=== PATIENT | male | born 1965 | race Caucasian/White ===

== ENCOUNTER 2024-01-28 16:59 | Inpatient (IN) | payer SELFPAY ==
[2024-01-28] MEDS ORDERED: ASPIRIN 81 MG CHEWABLE TABLET ONE (17:19)
[2024-01-28] MEDS ORDERED: HEPARIN 5000 UNIT/ML 1 ML VIAL ONE ×2 (17:19→17:45)
[2024-01-28] MEDS ORDERED: HEPARIN/D5W 25,000 UNIT/500 ML BAG IV ONE (17:20)
[2024-01-28] MEDS ORDERED: MORPHINE 4 MG/ML SYR ONE (17:20)
[2024-01-28 17:26] LABS: Absolute Basophils 0.1 K/uL (0-0.5); Absolute Eosinophils 0.2 K/uL (0-0.5); Absolute Lymphocytes (CBC) 2.8 K/uL (0.7-4.9); Absolute Monocytes 0.7 K/uL (0.1-1.3); Absolute Neutrophil 6.2 K/uL (1.8-8.0); Basophils % 1.4 % (0-1.3); Eosinophils % 1.7 % (0-4.4); Hematocrit 51.6 % (39.6-49.0); Hemoglobin 17.7 g/dL (13.6-17.9); Lymphocytes % 27.7 % (15.3-44.8); MCH 33.3 pg (27.0-35.0); MCHC 34.2 g/dL (32.0-36.0); MCV 97.4 fL (80-100); MPV 7.8 fL (7.6-11.3); Monocytes % 6.7 % (3.3-12.3); Neutrophils % 62.5 % (41.7-73.7); Nucleated Red Blood Cells % 0.2 % (0-0); Platelets 295 thou/uL (152-406); Red Cell Distribution Width 13.3 % (12.1-15.2)
[2024-01-28 17:30] LABS: Protime INR 0.98
--- NOTE | 2024-01-28 17:37 | RAD REPORT ---
EXAM DESCRIPTION: RAD - Chest Single View - 01/28/2024 5:24 pm CLINICAL HISTORY: CHEST PAIN Chest pain. COMPARISON: No comparisons FINDINGS: Portable technique limits examination quality. The lungs are grossly clear. The heart is normal in size. No displaced fractures. IMPRESSION: No acute intrathoracic process suspected.
[2024-01-28] MEDS ORDERED: HEPA 1000U/500MLS 2,000 UNIT/1,000 ML BAG IV ONE (17:44)
[2024-01-28] MEDS ORDERED: LIDOCAINE 1% 20 ML MDV ONE (17:44)
[2024-01-28] MEDS ORDERED: HEPARIN 10,000 UNIT/10 ML VIAL IV ONE (17:44)
[2024-01-28] MEDS ORDERED: MIDAZOLAM HCL 2 MG/2 ML INJ ONE (17:44)
[2024-01-28] MEDS ORDERED: ATROPINE SULF 1 MG/10 ML SYR IV ONE (17:44)
[2024-01-28 17:45] LABS: Anion Gap 10.6 mEq/L (5.0-15.0); Potassium 4.6 mEq/L (3.5-5.1)
[2024-01-28] MEDS ORDERED: NA CHLORIDE 0.9% 500 ML ONE (17:45)
[2024-01-28] MEDS ORDERED: ASPIRIN 325 MG TAB ONE (17:45)
[2024-01-28] MEDS ORDERED: CLOPIDOGREL 75 MG TABLET ONE (17:45)
[2024-01-28] MEDS ORDERED: FENTANYL CITR 100 MCG/2 ML ONE (17:45)
[2024-01-28] MEDS ORDERED: TICAGRELOR 90 MG TABLET PO ONE ×2 (17:45→17:48)
[2024-01-28 17:48] LABS: Troponin High Sensitivity 96.1 pg/mL (<58.9)
--- NOTE | 2024-01-28 17:58 | RAD REPORT ---
EXAM DESCRIPTION: CT - Angio Aorta For Dissection - 01/28/2024 5:40 pm CLINICAL HISTORY: Chest pain radiating to the back. chest pain COMPARISON: No comparisons TECHNIQUE: CT angiography of the aorta was performed with MIPs. All CT scans are performed using dose optimization technique as appropriate and may include automated exposure control or mA/KV adjustment according to patient size. FINDINGS: A left aortic arch is present with normal branching pattern of the great vessels.No acute aortic finding is seen such as aneurysm, penetrating ulcer or dissection. The celiac axis, SMA, PEÑA and renal arteries are patent. No evidence of pulmonary embolism. The lungs are clear. The liver demonstrates fatty liver.The spleen, pancreas, adrenal glands and kidneys are within normal limits for arterial phase imaging. Moderate abdominal aortic atherosclerosis with both iliac vessels also moderately atherosclerotic. Th ere is a short segment non flow limiting dissection present left common iliac artery. No bowel obstruction, free fluid or abscess.No pathologic enlarged lymphadenopathy identified. No fracture or worrisome bone lesion seen. 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 Fatty liver.
--- NOTE | 2024-01-28 18:15 | ER ---
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 + sweating. 17:13 Coronavirus screen: Client denies travel out of the [place] in the last 14 days. At this ll1 time, the client does not indicate any symptoms associated with coronavirus-19. Ebola Screen: Patient denies travel to an Ebola-affected area in the 21 days before illness onset. Initial Sepsis Screen: Does the patient meet any 2 criteria? No. Patient's initial sepsis screen is negative. Does the patient have a suspected source of infection? No. Patient's initial sepsis screen is negative. Risk Assessment: Do you want to hurt yourself or someone else? Patient reports no desire to harm self or others. Onset of symptoms was January 28, 2024. 17:13 Method Of Arrival: Ambulatory ll1 17:13 Acuity: LANI 1 ll1 Triage Assessment: 17:14 General: Appears distressed, uncomfortable, ill, Behavior is calm, cooperative, ll1 appropriate for age. Pain: Complains of pain in chest Pain radiates to right arm and left arm. Cardiovascular: Reports chest pain, diaphoresis, fatigue, shortness of breath. Historical: - Allergies: 17:03 No Known Allergies; ll1 - PMHx: 17:03 None; ll1 - PSHx: 17:03 None; ll1 - Immunization history:: Adult Immunizations. - Infectious Disease History:: Denies. - Social history:: Smoking status: Patient reports the use of cigarette tobacco products, smokes two packs cigarettes per day. - Family history:: not pertinent. - Hospitalizations: : No recent hospitalization is reported. Screenin:33 [facility] ED Fall Risk Assessment (Adult) History of falling in the last 3 months, ph including since admission No falls in past 3 months (0 pts) Confusion or Disorientation Intoxicated or Sedated No (0 pts) Impaired Gait No (0 pts) Mobility Assist Device Used No (0 pt) Altered Elimination No (0 pt) Score/Fall Risk Level 0 - 2 = Low Risk Oriented to surroundings, Maintained a safe environment, Hourly rounding (assess needs \T\ fall precautionary measures) done. Abuse screen: Denies threats or abuse. Denies injuries from another. Nutritional screening: No deficits noted. Tuberculosis screening: No symptoms or risk factors identified. Assessment: 17:15 General: Appears distressed, uncomfortable, Behavior is cooperative. Pain: Complains of ph pain in chest Pain radiates to left arm and right arm Pain began suddenly. Neuro: Level of Consciousness is awake, alert, obeys commands, Oriented to person, place, time, situation. Cardiovascular: Reports chest pain, lightheadedness, shortness of breath. Respiratory: Airway is patent Respiratory effort is even, unlabored, Respiratory pattern is regular, symmetrical. Derm: Skin is clammy, diaphoretic, Skin is normal. Musculoskeletal: Circulation, motion, and sensation intact. Range of motion: intact in all extremities. 17:32 Reassessment: Pt taken to CT via stretcher, accompanied by ESTIVEN Dao. ph 17:51 Reassessment: laborer cook house team at bedside. ph 17:59 Reassessment: Pt taken to lab director. ph Vital Signs: 17:13 BP 133 / 85; Pulse 71; Resp 18; Temp 98; Pulse Ox 100% on R/A; Weight 113.4 kg; Pain ll1 5/10; 17:22 BP 172 / 94 RA; Pulse 58; ph 17:22 BP 115 / 95 LA; Pulse 69; ph 17:13 Pain Scale: Adult ll1 ED Course: 17:01 Patient arrived in ED. ra3 17:06 Gilbert Miramontes MD is Attending Physician. rn 17:07 EKG completed in triage. Results shown to MD. ll1 17:14 Triage completed. ll1 17:14 Arm band placed on. ll1 17:21 Oly Henriquez, ESTIVEN is Primary Nurse. ph 17:21 Initial lab(s) drawn, by ED staff, sent to lab. Inserted saline lock: 18 gauge in left ph antecubital area, using aseptic technique. Blood collected. Flushed with 10 mL NS. Inserted saline lock: 18 gauge in right hand, using aseptic technique. Flushed with 10 mL NS. 17:26 XRAY Chest (1 view) In Process Unspecified. EDMS 17:34 Patient has correct armband on for positive identification. Bed in low position. Call ph light in reach. Side rails up X 1. Client placed on continuous cardiac and pulse oximetry monitoring. NIBP monitoring applied. threat monitoring analyst on. Door closed. Noise minimized. Warm blanket given. 17:40 No provider procedures requiring assistance completed. Patient admitted, IV remains in ph place. Patient maintains SpO2 saturation greater than 95% on room air. 17:42 CT Aorta for Dissection In Process Unspecified. EDMS 18:14 Jossy Evans MD is Hospitalizing Provider. rn Administered Medications: 17:18 Drug: Aspirin PO Chewable Tablet 324 mg PO once; 81 mg tablets x 4 Route: PO; ph 17:30 Follow up: Response: No adverse reaction ph 17:21 Drug: Heparin (MD-Bolus No thrombolytic) - HEParin IVP 60 units/kg IVP once; Max 5000 ph units {Co-Signature: cm10 (Lucy Suarez RN).} Route: IVP; Site: right hand; 17:30 Follow up: Response: No adverse reaction ph 17:24 CANCELLED (Duplicate Order): Heparin (MD Drip) - ([id number] units, l4u553 ml) 12 rn units/kg/hr IV at calculated rate Per protocol; Max initial rate 1000 units/hr 17:24 CANCELLED (Duplicate Order): Heparin (MD-Bolus No thrombolytic) - txyuygx97 units/kg rn IVP once; Max 5000 units 17:27 Drug: morphine IVP or IV 4 mg IVP once over 4 mins Route: IVP; Infused Over: 4 mins; iw Site: right hand; 17:30 Follow up: Response: No adverse reaction ph 17:46 CANCELLED (Duplicate Order): Brilinta - [id number] mg PO once; loading dose rn 17:49 Not Given (Other Intervention Used): Brilinta - zhzhphxnfi14 mg PO once; maintenance ph dose 17:49 Drug: Brilinta - Ticagrelor PO 180 mg PO once; loading dose Route: PO; ph 17:50 Follow up: Response: No adverse reaction ph Medication: 17:33 VIS not applicable for this client. ph Outcome: 17:59 Admitted to Powerhouse Operator accompanied by nurse, accompanied by tech, family with patient, ph via stretcher, with oxygen, on monitor, with chart, 17:59 Condition: stable 17:59 Instructed on the need for admit, 18:15 Decision to Hospitalize by Provider. rn 18:15 Patient left the ED. iw Signatures: Dispatcher [employer] Aliza Faustin RN RN iw Gilbert Miramontes MD MD rn Hall, Patricia, RN RN ph Lewis, Lynsay, RN RN ll1 Amy Sepulveda 3 Lucy Suarez RN cm10 Corrections: (The following items were deleted from the chart) 17:14 17:03 Chief complaint: Patient states: CP and arms ll1 ll1 17:15 17:13 BP 133 / 85; Pulse 71bpm; Resp 18bpm; Pulse Ox 100% RA; Pain 5/10, Adult; ll1 ll1 17:49 17:48 Brilinta - Ticagrelor PO 90 mg PO ph ph
--- NOTE | 2024-01-28 18:15 | EDPHYS ---
Physician Documentation [facility] Name: Scooby Ruiz Age: 58 yrs Sex: Male : 1965 Arrival Date: 01/28/2024 Time: 16:59 Bed IW10 Private MD: ED Physician Gilbert Miramontes HPI: 01/27 17:18 This 58 yrs old Male presents to ER via Ambulatory with complaints of Chest Pain. rn 17:18 The patient or guardian reports chest pain that is located primarily in the substernal rn area. Onset: 90 minute(s) ago. The pain radiates to the left arm. Associated signs and symptoms: Pertinent positives: nausea, shortness of breath. The chest pain is described as a heaviness, squeezing. Duration: The patient or guardian reports a single episode, that is still ongoing. Modifying factors: The symptoms are alleviated by nothing. the symptoms are aggravated by nothing. Severity of pain: in the emergency department the pain is unchanged. The patient has not experienced similar symptoms in the past. Patient reports working outside, began to feel chest pressure, heaviness, radiates to the left shoulder. Associated with nausea and sweating. No tearing chest pain and no radiation to the back. Patient reports pain never got better, not getting worse either. No recent illness. No known cardiac problem.. Historical: - Allergies: 17:03 No Known Allergies; ll1 - PMHx: 17:03 None; ll1 - PSHx: 17:03 None; ll1 - Immunization history:: Adult Immunizations. - Infectious Disease History:: Denies. - Social history:: Smoking status: Patient reports the use of cigarette tobacco products, smokes two packs cigarettes per day. - Family history:: not pertinent. - Hospitalizations: : No recent hospitalization is reported. ROS: 17:18 Constitutional: Negative for fever, chills, and weight loss, Cardiovascular: Positive rn for chest pain Respiratory: Negative for shortness of breath, cough, wheezing, and pleuritic chest pain, Abdomen/GI: Negative for abdominal pain, nausea, vomiting, diarrhea, and constipation, MS/Extremity: Negative for injury and deformity, Skin: Negative for injury, rash, and discoloration, Neuro: Positive for diaphoresis Exam: 17:18 Constitutional: This is a well developed, well nourished patient who is awake, alert, rn appears uncomfortable, mottled Head/Face: Normocephalic, atraumatic. Cardiovascular: Regular rate and rhythm. No pulse deficits. Respiratory: No increased work of breathing, no retractions or nasal flaring. Abdomen/GI: Soft, nontender, no masses MS/ Extremity: Pulses equal, no cyanosis. Neurovascular intact. Full, normal range of motion. Equal circumference. Neuro: Awake and alert, GCS 15 17:22 ECG was reviewed by the Attending Physician. rn Vital Signs: 17:13 BP 133 / 85; Pulse 71; Resp 18; Temp 98; Pulse Ox 100% on R/A; Weight 113.4 kg; Pain ll1 5/10; 17:22 BP 172 / 94 RA; Pulse 58; ph 17:22 BP 115 / 95 LA; Pulse 69; ph 17:13 Pain Scale: Adult ll1 MDM: 17:06 Patient medically screened. rn 17:17 ED course: Consulted with Dr. Carvajal, he is going to see if [facility] available at this rn time.. 17:18 ED course: Dr. Carvajal called back, unable to activate cath here, recommends transfer.. rn 17:26 ED course: Upon reevaluation skin became more mottled, repeat radial pulse diminished rn compared to right, bilateral blood pressures obtained by nurse and have a 60 point difference. Heparin infusion not given due to this new finding, patient will be rushed to CT to rule out dissection prior to cath.. 17:46 ED course: No evidence of gross dissection on CT aorta per my interpretation. rn 17:46 ED course: [facility] staff here, will be able to cath here after all.. rn 17:55 Differential diagnosis: acute myocardial infarction, acute pericarditis, rn costochondritis, gastroesophageal reflux disease (GERD). 17:57 ED course: Dr. Reddy reports verbally no aortic dissection or aneurysm. No flow problem rn at this time. Does report left iliac or femoral short segment dissection but does not alter flow and appears chronic. Patient is cleared to go to [facility] at this time.. 18:13 HEART Score: History: Highly Suspicious (2), ECG: Significant ST-deviation (2), Age: > rn 45 and < 65 years (1), Risk Factors: No Risk Factors Known (0), Troponin: > 1 and < 3 x normal limit (1), Total Score = 6. The patient was given aspirin in the Emergency Department. Data reviewed: vital signs, nurses notes, lab test result(s), EKG, radiologic studies, CT scan, and as a result, I will admit patient. Consideration of Admission/Observation Patient was admitted/placed on observation. Escalation of care including admission/observation considered. Counseling: I had a detailed discussion with the patient and/or guardian regarding the historical points, exam findings, and any diagnostic results supporting the discharge/admit diagnosis, lab results, radiology results, the need for further work-up and treatment in the hospital. Response to treatment: the patient's symptoms have mildly improved after treatment, and as a result, I will admit patient. ED course: I personally spent 35 minutes engaged in work directly related to the individual patient's care. This does not include any time spent performing procedures. The patient has been deemed critically ill because of acute STEMI, presenting with signs that required emergent rule out of aortic dissection prior to cath, organization of cath and admission to the hospital.. 01/27 17:10 Order name: Basic Metabolic Panel 01/27 17:10 Order name: CBC with Diff; Complete Time: : 01/27 17:10 Order name: NT PRO-BNP 01/27 17:10 Order name: PT-INR; Complete Time: :01/27 17:10 Order name: Troponin HS 01/27 17:10 Order name: XRAY Chest (1 view) 01/27 17:24 Order name: CT Aorta for Dissection 01/27 17:10 Order name: Cardiac monitoring; Complete Time: :01/27 17:10 Order name: EKG - Nurse/Tech; Complete Time: :01/27 17:10 Order name: IV Saline Lock; Complete Time: 17:01/27 17:10 Order name: Labs collected and sent; Complete Time: :01/27 17:10 Order name: O2 Per Protocol; Complete Time: :01/27 17:10 Order name: O2 Sat Monitoring; Complete Time: 17:40 rn EC: Rate is 68 beats/min. Rhythm is regular. QRS Gentry is Normal. MT interval is normal. QRS rn interval is normal. QT interval is normal. No Q waves. T waves are Normal. ST Segment is elevated in leads II, III, aVF. ST Segment is depressed in lead aVL. Clinical impression: STEMI. Interpreted by me. Reviewed by me. Administered Medications: 17:18 Drug: Aspirin PO Chewable Tablet 324 mg PO once; 81 mg tablets x 4 Route: PO; ph 17:30 Follow up: Response: No adverse reaction ph 17:21 Drug: Heparin (FL-Bolus No thrombolytic) - HEParin IVP 60 units/kg IVP once; Max 5000 ph units {Co-Signature: cm10 (Lucy Suarez RN).} Route: IVP; Site: right hand; 17:30 Follow up: Response: No adverse reaction ph 17:24 CANCELLED (Duplicate Order): Heparin (FL Drip) - ([id number] units, f4b082 ml) 12 rn units/kg/hr IV at calculated rate Per protocol; Max initial rate 1000 units/hr 17:24 CANCELLED (Duplicate Order): Heparin (FL-Bolus No thrombolytic) - units/kg rn IVP once; Max 5000 units 17:27 Drug: morphine IVP or IV 4 mg IVP once over 4 mins Route: IVP; Infused Over: 4 mins; iw Site: right hand; 17:30 Follow up: Response: No adverse reaction ph 17:46 CANCELLED (Duplicate Order): Brilinta - [id number] mg PO once; loading dose rn 17:49 Not Given (Other Intervention Used): Brilinta - oxksxenbie58 mg PO once; maintenance ph dose 17:49 Drug: Brilinta - Ticagrelor PO 180 mg PO once; loading dose Route: PO; ph 17:50 Follow up: Response: No adverse reaction ph Disposition: 18:13 Critical Care:. 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 Total time: 35 rn minutes Signatures: Dispatcher [employer] EDAliza Hodge, RN Gilbert Whitehead MD MD rn Hall, Patricia, RN RN ph Lewis, Lynsay, RN RN ll1 Erick, Lucy JEAN-BAPTISTE cm10 Corrections: (The following items were deleted from the chart) 17:11 17:11 Chest Single View+RAD.RAD.BRZ ordered. EDWV EDMS 17:24 17:16 Heparin (FL Drip) 12 units/kg/hr - ([place] [address] units, D5W IV 500 ml) IV at rn calculated rate Per protocol; Max initial rate 1000 units/hr ordered. rn 17:24 17:16 Heparin (FL-Bolus No thrombolytic) - HEParin IVP 60 units/kg IVP once; Max 5000 rn units ordered. rn 17:46 17:46 Brilinta - Ticagrelor PO 180 mg PO once; loading dose ordered. rn rn
[2024-01-28] MEDS ORDERED: EPTIFIBATIDE 75 MG/100 ML VIAL IV ONE ×2 (18:25→20:08)
[2024-01-28] MEDS ORDERED: EPTIFIBATIDE 20 MG/10 ML VIAL IV ONE (18:25)
[2024-01-28] MEDS: EPTIFIBATIDE 75 MG/100 ML VIAL IV SCH (18:39)
[2024-01-28] MEDS ORDERED: ONDANSETRON 4 MG/2 ML VIAL IV PRN (19:43)
[2024-01-28] MEDS ORDERED: MORPHINE 2 MG/ML SYR IV PRN (19:43)
--- NOTE | 2024-01-28 19:43 | P.HP ---
Certification for Inpatient With expected LOS: >2 Midnights Patient will require the following post-hospital care: None Practitioner: I am a practitioner with admitting privileges, knowledge of patient current condition, hospital course, and medical plan of care. Services: Services provided to patient in accordance with Admission requirements found in Title 42 Section 412.3 of the Code of Federal Regulations Patient History Date of Service: 01/28/24 Reason for admission: Chest pain History of Present Illness: 58-year-old male with a past medical history of only chronic tobacco use, presenting with sudden onset chest pain about 3 hours prior to presentation anterior chest described as heaviness, nonradiating acid with mild shortness of breath. Patient denies any palpitation. No dizziness or syncope. On arrival in the ED EKG shows ST segment elevation in 2 3 and aVF, troponin mildly elevated at 96. Rest of laboratory workup unremarkable except for creatinine of 1.44, no previous to compare. Cardiology consulted and Hi Teacher activated. Patient received aspirin Brilinta as well as heparin drip. He has been taken to cardiac engineering laboratory technician now for urgent STEMI. Of note the patient was also noted to have differential blood pressure in bilateral lower extremities. CTA of the abdomen done shows no evidence of dissection but short segment dissection of the left common femoral artery.This does not appear to cause flow restriction. Allergies No Known Allergies Allergy (Unverified 01/28/24 19:11) - Past Medical/Surgical History Has patient received pneumonia vaccine in the past: No Diabetic: No Past Medical History: Reviewed- Non-Contributory Past Surgical History: Reviewed- Non-Contributory - Social History Smoking Status: Heavy Tobacco smoker (>10 cigarettes/day) Smoking therapy provided: Yes Patient receptive to therapy: No Alcohol use: No CD- Drugs: No Caffeine use: No Place of Residence: Home Review of Systems Cardiovascular: Chest Pain, Orthopnea Physical Examination - Vital Signs Temperature: 98 F Blood Pressure: 115/95 Pulse: 69 Respirations: 18 - Physical Exam General: Alert, In no apparent distress, Oriented x3, Mild distress, Other (Pale and acutely ill looking) HEENT: Atraumatic, Normocephalic, PERRLA Neck: Supple, 2+ carotid pulse no bruit, JVD not distended Respiratory: Clear to auscultation bilaterally, Normal air movement Cardiovascular: Normal pulses, Regular rate/rhythm, Normal S1 S2 Capillary refill: Other (Delayed with reduced position on the right compared to left) Gastrointestinal: Normal bowel sounds, Soft and benign, Non-distended, No ascites Musculoskeletal: No clubbing, No swelling Integumentary: No breakdown, No tenderness/swelling Neurological: Normal speech, Normal strength at 5/5 x4 extr, Cranial nerves 3-12 intact - Studies Laboratory Data (last 24 hrs) 01/28/24 01/28/24 01/28/24 17:15 17:15 17:15 WBC 10.00 Hgb 17.7 Hct 51.6 H Plt Count 295 PT 11.0 INR 0.98 Sodium 134 L Potassium 4.6 BUN 7 Creatinine 1.44 H Glucose 206 H Assessment and Plan - Problems (Diagnosis) (1) Acute HI, anterior wall Current Visit: Yes Status: Acute - Plan Impression Acute STEMI Chronic tobacco use Femoral artery dissection Acute kidney injurylikely due to prerenal/cardiorenal Plan Status post cardiac cath Follow cardiology recommendation Heparin Plavix and aspirin Obtain lipid panel in a.m. Will initiate statin Tobacco cessation advised Add nicotine patch Pain control Gentle IV fluid with acetylcysteine since DESIREE to minimize superimposed contrast nephropathy Heparin for DVT prophylaxis Full code - Advance Directives Does patient have a Living Will: No Does patient have a Durable POA for Healthcare: No
[2024-01-28] MEDS ORDERED: LORAZEPAM 0.5 MG TABLET PO PRN (19:45)
[2024-01-28] MEDS ORDERED: HYDRALAZINE HCL 20 MG/ML VIAL IV PRN (19:45)
[2024-01-28] MEDS ORDERED: TICAGRELOR 90 MG TABLET PO SCH (21:00)
[2024-01-28] MEDS: ACETYLCYST 20% 800 MG/4 ML VIAL PO SCH (21:16)
[2024-01-28] MEDS: ATORVASTATIN 80 MG TAB PO SCH (21:16)
[2024-01-28] MEDS: NA CHLORIDE 0.9% 1,000 ML IV SCH (21:16)
[2024-01-28] MEDS: FAMOTIDINE 20 MG TAB PO SCH (21:18)
[2024-01-28 23:25] LABS: Thyroid Stimulating Hormone 3.99 uIU/mL (0.358-3.740)
[2024-01-29 05:10] VITALS: BMI 34.8
[2024-01-29 05:25] LABS: Absolute Basophils 0.1 K/uL (0-0.5); Absolute Eosinophils 0.1 K/uL (0-0.5); Absolute Lymphocytes (CBC) 2.3 K/uL (0.7-4.9); Absolute Monocytes 1.2 K/uL (0.1-1.3); Absolute Neutrophil 8.5 K/uL (1.8-8.0); Basophils % 0.4 % (0-1.3); Eosinophils % 0.9 % (0-4.4); Hematocrit 45.4 % (39.6-49.0); Hemoglobin 15.8 g/dL (13.6-17.9); Lymphocytes % 19.1 % (15.3-44.8); MCH 33.5 pg (27.0-35.0); MCHC 34.8 g/dL (32.0-36.0); MCV 96.3 fL (80-100); MPV 7.9 fL (7.6-11.3); Monocytes % 9.5 % (3.3-12.3); Neutrophils % 70.1 % (41.7-73.7); Nucleated Red Blood Cells % 0.1 % (0-0); Platelets 273 thou/uL (152-406); RBC Red Blood Cell Count 4.72 M/uL (4.33-5.43); Red Cell Distribution Width 13.3 % (12.1-15.2)
[2024-01-29 05:45] LABS: PT Prothrombin Time 11.8 SECONDS (9.4-12.5); Protime INR 1.06
[2024-01-29 06:31] LABS: Albumin 3.5 g/dL (3.4-5.0); Albumin/Globulin Ratio 0.9 (1.1-1.8); Anion Gap 9.2 mEq/L (5.0-15.0); Bilirubin Total 0.5 mg/dL (0.2-1.0); Globulin 3.7 g/dL (2.3-3.5); Potassium 4.2 mEq/L (3.5-5.1); Protein, Total 7.2 g/dL (6.4-8.2)
--- NOTE | 2024-01-29 08:49 | P.CNS ---
Date of Consult: 01/29/24 Chief Complaint: Chest pain History of Present Illness: Patient presented yesterday with chest pain for 2 hours prior to arrival, pressure sensation, radiated to his arm and back, sweating, diapharesis, was found to have ST elevation inferior leads, was taken emergently to test lab technician a fter CT was done to rule out dissection. Allergies No Known Allergies Allergy (Unverified 01/28/24 19:11) Home medications list reviewed: Yes Home Medications: NK [No Home Meds] 01/29/24 - Past Medical/Surgical History Diabetic: No - Family History Mother Medical History: Lung disease - Social History Smoking Status: Current every day smoker Alcohol use: No CD- Drugs: No Caffeine use: Yes Place of Residence: Home Review of Systems 10-point ROS is otherwise unremarkable Physical Examination Temp Pulse Resp BP Pulse Ox 97.2 F 62 15 121/83 96 01/29/24 08:00 01/29/24 08:00 01/29/24 08:00 01/29/24 08:00 01/29/24 08:00 General: Alert, In no apparent distress HEENT: Atraumatic, PERRLA, Mucous membr. moist/pink, EOMI, Sclerae nonicteric Neck: Supple, 2+ carotid pulse no bruit, No LAD, Without JVD or thyroid abnormality Respiratory: Clear to auscultation bilaterally, Normal air movement Cardiovascular: Regular rate/rhythm, Normal S1 S2 Gastrointestinal: Normal bowel sounds, No tenderness Musculoskeletal: No tenderness Integumentary: No rashes Neurological: Normal gait, Normal speech, Normal tone, Normal affect Lymphatics: No axilla or inguinal lymphadenopathy Laboratory Data (last 24 hrs) 01/28/24 01/28/24 01/28/24 17:15 17:15 17:15 WBC 10.00 Hgb 17.7 Hct 51.6 H Plt Count 295 PT 11.0 INR 0.98 Sodium 134 L Potassium 4.6 BUN 7 Creatinine 1.44 H Glucose 206 H - Problems (1) STEMI (ST elevation myocardial infarction) Current Visit: Yes Status: Acute Plan: Patient was taken emergently to test lab technician and PCI of 99% thrombotic occluded RCA was done with Synergy 4.0x38 and 4.0x24 mm MIRANDA ASA 81 mg daily for life. Brilinta 90 mg po BID for 12 months Get echo (2) HLD (hyperlipidemia) Current Visit: Yes Status: Acute Plan: continue Lipitor 80 mg daily (3) HTN (hypertension) Current Visit: Yes Status: Acute Plan: Patient BP is soft, not on medications for now, continue to monitor.
[2024-01-29] MEDS: NICOTINE 21 MG/PAT TD SCH (09:08)
[2024-01-29] MEDS: TICAGRELOR 90 MG TABLET PO SCH (09:08)
[2024-01-29] MEDS: ASPIRIN 81 MG CHEWABLE TABLET PO SCH (09:08)
[2024-01-29] MEDS: ENOXAPARIN 40 MG/0.4 ML SQ SCH (09:08)
[2024-01-29 12:53] VITALS: TEMP 98
--- NOTE | 2024-01-29 13:06 | OP ---
Date of Procedure: 01/29/2024 Surgeon: Tom Carvajal Procedures Performed: 1.Selective coronary angiogram. 2.PCI of the RCA with Synergy 4.0 x 38 overlapped with Synergy 4.0 x 24 mm drug-eluting stents. Indication For Procedure: ST-elevation MD. Complications: None. Estimated Blood Loss: Less than 50 cc. Access: Right radial, closed by TR band. Sedation Time: 40 minutes with 1 of Versed and 25 of fentanyl. Description Of Procedure: After risks, benefits, and alternatives were explained to the patient, the patient agreed to proceed with the procedure and signed informed consent. The patient was brought [facility] to the incinerator plant laborer, prepped and draped in a sterile fashion. Time-out was performed. Sedation was administered. Next, the right radial access was obtained. A JR4 guide was advanced over J-wire to t he aortic root. Selective angiogram was done with a JR4 guide. Next, heparin was administered. ACT was therapeutic. A run-through wire was passed across the lesion, pre-dilated the lesions with 3.0 NC balloon. Next, Synergy 4.0 x 38 mm drug-eluting stent was placed to close mid to distal RCA that was overlapped with another Synergy 4.0 x 28 mm drug-eluting stent to the proximal to mid RCA. The s tents were postdilated with an NC 4.5 mm balloon. Final angiogram shows DIOGO-3 flow. Next, JR4 guid e was exchanged for a [place] 4 catheter for the left coronary system selective coronary angiogram. At the end of the procedure, catheter was removed over a J-wire. Sheath was removed. TR band was appl ied. Hemostasis was achieved. The patient was moved back to recovery in stable condition. Findings: 1.Left main, normal. 2.LAD, mild luminal irregularities. 3.Left circ, mild luminal irregularities. 4.RCA, large, dominant, proximal to mid 90% to 99% thrombotic disease, status post PCI with Synergy 4.0 x 38 and 4.0 x 24 mm drug-eluting stents. 5.RPDA/RPLV, mild luminal irregularities. Assessment And Plan: 1.STEMI with 99% thrombotic occlusion of the RCA, most likely status post PCI with Synergy 4.0 x 38 overlapped with 4.0 x 24 mm drug-eluting stents. 2.Continue aspirin 81 mg daily for life. 3.Brilinta 180 x1 was given in the ER, continue Brilinta 90 mg p.o. b.i.d. for 12 months. 4.Integrilin bolus was given in the incinerator plant laborer, continue drip for 6 hours. 5.Continue aggressive medical treatment for CAD. SOARES/MODL Voice ID: [id number] Report ID: [id number]
--- NOTE | 2024-01-29 13:38 | ECHO ---
HEIGHT: 5 ft 11 in WEIGHT: 250 lb 0 oz DATE OF STUDY: 01/29/[address]: Tom Carvajal MD 2-DIMENSIONAL: YES M.MODE: YES DOPPLER: YES COLOR FLOW: YES TDS: NO PORTABLE: YES DEFINITY: NO BUBBLE STUDY: NO DIAGNOSIS: STATUS POST HEART CATH WITH STENT X2 TO RCA CARDIAC HISTORY: CATHERIZATION:YES SURGERY: NO PROSTHETIC VALVE: NO PACEMAKER: NO MEASUREMENTS (cm) DIASTOLIC (NORMALS) SYSTOLIC (NORMALS) IVSd 0.9 (0.6-1.2) LA Diam 3.5 (1.9-4.0) LVEF 67% LVIDd 5.2 (3.5-5.7) LVIDs 3.3 (2.0-3.5) %FS 38% LVPWd 1.2 (0.6-1.2) Ao Diam 2.7 (2.0-3.7) 2 DIMENSIONAL ASSESSMENT: RIGHT ATRIUM: NORMAL LEFT ATRIUM: NORMAL RIGHT VENTRICLE: NORMAL LEFT VENTRICLE: NORMAL TRICUSPID VALVE: NORMAL MITRAL VALVE: NORMAL PULMONIC VALVE: NORMAL AORTIC VALVE: NORMAL PERICARDIAL EFFUSION: NONE AORTIC ROOT: NORMAL LEFT VENTRICULAR WALL MOTION: NORMAL DOPPLER/COLOR FLOW: NORMAL COMMENTS: 1. NORMAL LEFT VENTRICULAR SYSTOLIC FUNCTION. NORMAL LEFT VENTRICULAR EJECTION FRACTION 60-65%. NORMAL WALL MOTION. 2. NORMAL DIASTOLIC FUNCTION. TECHNOLOGIST: BILLIE HANSON
[2024-01-29] MEDS: SOD CHLORIDE 0.65% NASAL SPRAY NAS SCH (14:43)
--- NOTE | 2024-01-29 15:36 | P.DS ---
Admission Date: 01/28/24 Discharge Date: 01/29/24 Disposition: ROUTINE DISCHARGE Discharge Condition: GOOD Reason for Admission: Chest pain Brief History of Present Illness: 58-year-old male with a past medical history of only chronic tobacco use, presenting with sudden onset chest pain about 3 hours prior to presentation anterior chest described as heaviness, nonradiating acid with mild shortness of breath. Patient denies any palpitation. No dizziness or syncope. On arrival in the ED EKG shows ST segment elevation in 2 3 and aVF, troponin mildly elevated at 96. Rest of laboratory workup unremarkable except for creatinine of 1.44, no previous to compare. Cardiology consulted and Outboard Motor Tester activated. Patient received aspirin Brilinta as well as heparin drip. He has been taken to cardiac fish farm laborer now for urgent STEMI. Of note the patient was also noted to have differential blood pressure in bilateral lower extremities. CTA of the abdomen done shows no evidence of dissection but short segment dissection of the left common femoral artery.This does not appear to cause flow restriction. Hospital Course: Pt is a 58yo male with past medical history chronic tobacco use who presented with chest pain. On admission, EKG showed ST elevated in leads 2 3 and aVF. Lab studies showed elevated troponin at 96 and creatinine of 1.44. we consulted Cardiology for evaluation. cardiology did cardiac cath and placed a stent to the RCA. Pt was advised to continue aspirin and brilinta for at least 1 years. We also advised her to continue atorvastatin and quit smoking. Echo showed EF 60 - 65% with normal diastolic function. Pt was in NAD prior to discharge. Vital Signs/Physical Exam: Temp Pulse Resp BP Pulse Ox 98.0 F 69 16 123/82 95 01/29/24 12:00 01/29/24 14:00 01/29/24 14:00 01/29/24 14:00 01/29/24 14:00 Laboratory Data at Discharge: WBC 12.10 thou/uL (4.3-10.9) H 01/29/24 04:32 Hgb 15.8 g/dL (13.6-17.9) D 01/29/24 04:32 Hct 45.4 % (39.6-49.0) 01/29/24 04:32 Plt Count 273 thou/uL (152-406) 01/29/24 04:32 PT 11.8 SECONDS (9.4-12.5) 01/29/24 04:32 INR 1.06 01/29/24 04:32 Sodium 136 mEq/L (136-145) 01/29/24 04:32 Potassium 4.2 mEq/L (3.5-5.1) 01/29/24 04:32 BUN 6 mg/dL (7-18) L 01/29/24 04:32 Creatinine 1.05 mg/dL (0.70-1.30) 01/29/24 04:32 Glucose 105 mg/dL (74-106) 01/29/24 04:32 Total Bilirubin 0.5 mg/dL (0.2-1.0) 01/29/24 04:32 AST 67 U/L (15-37) H 01/29/24 04:32 ALT 47 U/L (16-61) 01/29/24 04:32 Alkaline Phosphatase 59 U/L (45-117) 01/29/24 04:32 Triglycerides 319 mg/dL (<150) H 01/29/24 04:32 Cholesterol 187 mg/dL (<200) 01/29/24 04:32 HDL Cholesterol 28 mg/dL (40-60) L 01/29/24 04:32 Cholesterol/HDL Ratio 6.68 01/29/24 04:32 Home Medications: Aspirin Chewable [Aspirin Chewable*] 81 mg PO DAILY 90 Days #90 tab.chew 01/29/24 Atorvastatin Calcium [Lipitor] 40 mg PO BEDTIME 90 Days #90 tab 01/29/24 Nicotine [Nicotine Patch] 1 each TD DAILY 42 Days #42 patch 01/29/24 Ticagrelor [Brilinta] 90 mg PO BID 90 Days #180 tab 01/29/24 New Medications: Aspirin Chewable [Aspirin Chewable*] 81 mg PO DAILY 90 Days #90 tab.chew Ticagrelor [Brilinta] 90 mg PO BID 90 Days #180 tab Atorvastatin Calcium [Lipitor] 40 mg PO BEDTIME 90 Days #90 tab Nicotine [Nicotine Patch] 1 each TD DAILY 42 Days #42 patch Physician Discharge Instructions: Continue ad nida activity as tolerated. Take brilinta and aspirin for at least 1 year. Continue atorvastatin and other home meds. Follow up with PCP and Cardiology within 1 - 2 weeks. Diet: AHA Activity: Ad nida Followup: NONE,NONE [Primary Care Provider] -
[2024-01-29 17:05] VITALS: O2SAT 95
[2024-01-29 17:06] VITALS: BP 131/84
--- NOTE | 2024-01-30 14:44 | EKG ---
Test Date: 2024-01-28 Test Time: 17:06:58 Staff Pharmacist [facility]: [facility] MEASUREMENT RESULTS: Intervals: Rate: 68 NE: 172 QRSD: 84 QT: 394 QTc: 418 [place]: P: 63 NE: 172 QRS: 67 T: 98 INTERPRETIVE STATEMENTS: Normal sinus rhythm ST elevation, consider inferior injury or acute infarct ACUTE MS / STEMI Consider right ventricular involvement in acute inferior infarct Abnormal ECG No previous ECG available for comparison Electronically Signed On 01-30-24 14:40:50 CDT by Tom Carvajal
--- NOTE | 2024-01-30 14:44 | EKG ---
Test Date: 2024-01-28 Test Time: 17:07:37 Erp Specialist: [facility] MEASUREMENT RESULTS: Intervals: Rate: 65 [place]: 172 QRSD: 84 QT: 388 QTc: 403 [place]: P: 60 CA: 172 QRS: 67 T: 95 INTERPRETIVE STATEMENTS: Normal sinus rhythm ST elevation, consider inferior injury or acute infarct ACUTE [place] / STEMI Consider right ventricular involvement in acute inferior infarct Abnormal ECG Compared to ECG 01/28/2024 17:06:58 No significant changes Electronically Signed On 01-30-24 14:40:47 CDT by Tom Carvajal
== END 2024-01-29 16:52 | disposition home or self-care (01) | DRG 321 ==
LOC: ER 16:59 → 3RD-ICU 19:43
PROVIDERS: ADMIT Internal Medicine; ATTEND Hospitalist
PROC: 027035Z Dilation of Coronary Artery, One Artery with Two Drug-eluting Intraluminal Devices, Percutaneous Approach (ICD-10-PCS; principal; 2024-01-29)
PROC: 4A023N7 Measurement of Cardiac Sampling and Pressure, Left Heart, Percutaneous Approach (ICD-10-PCS; 2024-01-29)
PROC: B2111ZZ Fluoroscopy of Multiple Coronary Arteries using Low Osmolar Contrast (ICD-10-PCS; 2024-01-29)
DX: I21.09 ST elevation (STEMI) myocardial infarction involving other coronary artery of anterior wall (principal); I77.77 Dissection of artery of lower extremity; N17.9 Acute kidney failure, unspecified; E78.5 Hyperlipidemia, unspecified; I10 Essential (primary) hypertension; F17.210 Nicotine dependence, cigarettes, uncomplicated; Z79.82 Long term (current) use of aspirin; Z79.899 Other long term (current) drug therapy
CPT/HCPCS: 36415; 71045; 71275; 74175; 76937; 80048; 80053; 80061; 83036; 83880; 84439; 84443; 84484; 85025; 85347; 85610; 92928; 92941; 93005; 93306; 93454; 94760; 96374; 96375; 99152; 99153; 99285; C1725; C1893; J0461; J1327; J1644; J1650; J2001; J2250; J3010; J7030; J7040; Q9967